=== PATIENT | female | born 1940 | race Caucasian/White ===

== ENCOUNTER → 2016-10-29 | Outpatient (CLI) | payer MEDICARE ==
[2014-07-04 12:30] VITALS: BP 167/79
[~2016-10-29] MED LIST: ALPR0.254 PO; ASCO500T2 PO; CETI10CA PO; CHOL200044 PO; CITA20TA9 PO; CRAN200C PO; CYAN500T17 PO; DIVA500T2 PO; DOCU-27 PO; ESTR0.5T PO; GABA-586 PO; GLIM4TAB2 PO; GLYB5TAB3 PO; HYDR-2666 PO; HYDR-2679 PO; IOHEXOL 180 MG/ML 10 ML VIAL. ONE; LEVO50TA5 PO; LISI10TA2 PO; LOVA20TA2 PO; METF500T4 PO; MULT-658 PO; PRIM50TA PO; ROPI0.5T2 PO; ROPI1TAB2 PO; methylPREDNISolone ACETATE 40 MG/ML VIAL. ONE; methylPREDNISolone ACETATE 80 MG/ML VIAL. ONE
--- NOTE | 2016-10-30 01:58 | PAIN ---
DATE OF SERVICE: 10/29/2016 DIAGNOSES: Lumbar radiculopathy with lumbar post-laminectomy syndrome. HISTORY OF PRESENT ILLNESS: The patient is a 76-year-old female who returns for followup status post caudal approach epidural steroid injection x 1 on 10/26/2015. The patient reports she did very well after that, 50% improvement overall in the pain of low back and right leg. The patient reports it is still persistent ____ to become more noticeable now over the past week or so, increasing in intensity in the low back, radiating to the posterior gluteus, posterior thigh, posterior lower leg, into the ankle on the right side primarily and across the low back, rates as 9 on a scale of 10, describes as aching and dull with shooting pain, sometimes stabbing, worse with standing, walking or sitting but better with lying down. She has not been awakened from sleep from the pain recently and reports that she has been getting ____ a little bit better up until the last week or so when the pain is beginning to return and become more noticeable. The patient also reported that she did well with some home physical therapy. We will get that renewed for her as well, as it seems to be very beneficial for her. The patient reports no new motor or sensory deficits, no new bowel or bladder incontinence or other complaints. PHYSICAL EXAMINATION: VITAL SIGNS: The patient's blood pressure is 151/70, pulse 91, respirations 20, temperature 98.8 degrees Fahrenheit, height is 5 feet, weight is 117 pounds. GENERAL: The patient is awake, alert, oriented, appropriate, very pleasant demeanor. HEENT: Shows normocephalic, atraumatic. Extraocular movements are intact and symmetrical. Oral cavity shows mucous membranes are moist and pink. Dentition is intact. NECK: Shows the anterior throat supple without palpable lymphadenopathy noted. Swallow reflex is symmetrical. CHEST: Shows normal on inspection. Breath sounds are clear to auscultation bilaterally. HEART: Shows S1 and S2 clear. ABDOMEN: Soft, nontender, nondistended. No palpable organomegaly is noted. No rebound or guarding demonstrated. BACK: Shows spine grossly in midline. Well-healed surgical scars noted. Some moderate flattening of lumbar lordotic curvature is once again appreciated with palpation in lumbar paraspinous musculature shows some moderate tenderness with palpation in the low lumbar distribution, mid lumbar distribution as well, but is roughly symmetrical. Muscles are firm with normal muscle girth bilaterally with only diffuse tenderness without radiation. No tenderness over the sacrum or the sacroiliac regions. EXTREMITIES: Lower extremities show deep tendon reflexes 1+ in the patellar and tendo calcaneus tendons, are equal. Motor exam is strong with 5/5 dorsiflexion and extension, quadriceps and hamstring flexion are equal as well. Options were discussed with the patient. At this time, the patient's old chart was reviewed as her current medication regimen and updated. Current review of systems updated today as well. I will proceed with a second caudal epidural steroid injection today with fluoroscopic guidance. Risks were again discussed including, but not limited to bleeding, infection, possibility of epidural hematoma and subsequent neurological compromise, dural puncture, headaches, spinal cord and/or nerve damage, side effects of steroid medication and poor results regarding pain control. The patient understands and wishes to proceed. The patient will return to the clinic in approximately 2 weeks for followup. She was counseled on return appointment, activity level, side effects to be aware of. We will also restart her physical therapy at home therapy visits as she has done very well with these and feels that she is falling behind now that she has not been receiving them. DIAGNOSIS: Lumbar radiculopathy with post-lumbar laminectomy syndrome. PROCEDURE: Caudal approach epidural steroid injection using fluoroscopic guidance with sterile prep and drape under local anesthetic. Medication injected 120 mg of Depo-Medrol plus 10 mL of preservative-free normal saline and 2 mL of Isovue for contrast. Condition at discharge is stable. The patient tolerated the procedure well, had no complications. TASH PARK MD DR: LETY/ann marie JOB#: [id number] / [id number]
== END ==
LOC: PNCL 13:18
PROVIDERS: ATTEND Anesthesiology
DX: M54.16 Radiculopathy, lumbar region (principal); M96.1 Postlaminectomy syndrome, not elsewhere classified; E78.00 Pure hypercholesterolemia, unspecified; I10 Essential (primary) hypertension; M19.90 Unspecified osteoarthritis, unspecified site; E11.9 Type 2 diabetes mellitus without complications; E03.9 Hypothyroidism, unspecified; F32.9 Major depressive disorder, single episode, unspecified; F41.9 Anxiety disorder, unspecified; F17.200 Nicotine dependence, unspecified, uncomplicated; Z98.42 Cataract extraction status, left eye; Z98.41 Cataract extraction status, right eye; Z90.49 Acquired absence of other specified parts of digestive tract; Z90.710 Acquired absence of both cervix and uterus
CPT/HCPCS: 62323; J1030; J1040

== ENCOUNTER → 2016-12-28 | Outpatient (CLI) | payer MEDICARE ==
[2014-07-04 12:30] VITALS: BP 167/79
--- NOTE | 2016-12-28 23:49 | PN ---
DATE: DIAGNOSES: Lumbar radiculopathy with post-lumbar laminectomy syndrome. HISTORY OF PRESENT ILLNESS: The patient is a 76-year-old female who returns for followup status post caudal approach epidural steroid injections x 2. The patient reports she did very well after the last injection about 75% improvement in the low back and lower extremity pain, slightly more on the right side now than the left, but it is returning now over the past 2 weeks or so. She is doing physical therapy at her house twice a week and feels that she is doing well with this, is almost finished with it and will do so with this on her own once this is over as well. The patient reports her pain now as 8-9/10 on a scale of 10 in the low back radiating to the right lower extremity, most noticeably is tight and aching also dull and throbbing pain occasionally in the low back, is worse with activity, standing and walking, but has not been awakening her from sleep at night. She feels better with sitting down or laying down. The patient reports no new motor or sensory deficits. No new bowel or bladder incontinence or other complaints. PHYSICAL EXAMINATION: VITAL SIGNS: Today, the patient's blood pressure 144/83, pulse 83, respirations 18, and temperature is 98.0 degrees Fahrenheit. Height is 5 feet 0 inches, weight 117 pounds. GENERAL: The patient is awake, alert, oriented, appropriate, very pleasant demeanor. HEENT: Head shows normocephalic, atraumatic. Extraocular movements are intact, symmetrical. Oral cavity, mucous membranes moist and pink. Dentition is intact. NECK: Shows anterior throat supple without palpable lymphadenopathy noted. Swallow reflex is symmetrical. CHEST: Shows normal on inspection. Breath sounds are clear to auscultation bilaterally. HEART: Shows S1 and S2 clear. ABDOMEN: Soft, nontender, and nondistended. No palpable organomegaly. No rebound or guarding demonstrated. BACK: Shows spine grossly in midline. Well-healed surgical scarring is noted with some flattening of lumbar lordotic curvature, minor increase in thoracic kyphotic curvature. Lumbar paraspinous musculature is diffusely tender throughout the upper, middle and lower distribution of paraspinous muscles bilaterally. EXTREMITIES: Lower extremities show deep tendon reflexes at 1+ in the patellar tendons. Motor exam is strong with 5/5 dorsiflexion, extension and equal. Options were discussed with the patient. At this time, the patient's old chart was reviewed as her current medication regimen updated. Current review of systems updated today as well. We will proceed with the third in the series of caudal approach epidural steroid injection today with fluoroscopic guidance. Risks were again discussed including, but not limited to bleeding, infection, possibility of epidural hematoma, subsequent neurologic compromise, dural puncture, headaches, spinal cord and/or nerve damage, side effects of steroid medication and poor results regarding pain control. The patient understands and wishes to proceed. The patient will return to clinic in approximately 2 weeks for followup, was counseled on return appointment, activity level, and side effects to be aware of. DIAGNOSIS: Lumbar radiculopathy with post-lumbar laminectomy syndrome. PROCEDURE: Caudal approach epidural steroid injection using local anesthetic under sterile prep and drape using fluoroscopic guidance. MEDICATION INJECTED: Depo-Medrol 120 mg plus 10 mL of preservative-free normal saline and 2 mL Isovue for contrast. CONDITION AT DISCHARGE: Stable. The patient tolerated procedure well, had no complications. TASH PARK MD DR: LETY/ann marie JOB#: [id number] / [id number]
== END | disposition home or self-care (01) ==
LOC: PNCL 08:53
PROVIDERS: ATTEND Anesthesiology
DX: M54.16 Radiculopathy, lumbar region (principal); M96.1 Postlaminectomy syndrome, not elsewhere classified; E78.00 Pure hypercholesterolemia, unspecified; I10 Essential (primary) hypertension; M19.90 Unspecified osteoarthritis, unspecified site; F41.9 Anxiety disorder, unspecified; F32.9 Major depressive disorder, single episode, unspecified; E11.9 Type 2 diabetes mellitus without complications; E03.9 Hypothyroidism, unspecified; Z87.39 Personal history of other diseases of the musculoskeletal system and connective tissue; Z90.710 Acquired absence of both cervix and uterus; Z90.49 Acquired absence of other specified parts of digestive tract
CPT/HCPCS: 62323; J1030; J1040; 62327